=== PATIENT | male | born 1970 | race Caucasian/White ===

== ENCOUNTER 2017-01-08 16:51 | Emergency (ER) | payer MEDICAID ==
[~2017-01-08] VITALS: Ht 182.9 cm; Wt 79.4 kg
[2017-01-08 19:35] VITALS: BP 133/99
== END 2017-01-08 19:35 | disposition home or self-care (01) ==
LOC: ED 16:51
DX: R56.9 Unspecified convulsions (principal); I10 Essential (primary) hypertension; G81.94 Hemiplegia, unspecified affecting left nondominant side; F17.210 Nicotine dependence, cigarettes, uncomplicated; Z71.6 Tobacco abuse counseling
CPT/HCPCS: 82962; 99406

== ENCOUNTER 2017-01-26 10:50 | Emergency (ER) | payer MEDICAID ==
[~2017-01-26] VITALS: Ht 177.8 cm; Wt 81.6 kg
[2017-01-26 11:23] LABS: CHLORIDE SERUM 103 mmol/L (98-107); GFR1 > 60 mL/min; GLUCOSE SERUM 87 mg/dL (74-106); POTASSIUM SERUM 4.1 mmol/L (3.5-5.1); SODIUM SERUM 141 mmol/L (136-145)
[2017-01-26 11:28] LABS: ALBUMIN 3.6 g/dL (3.4-5.0); ALKALINE PHOSPHATASE 60 U/L (46-116); ALT/SGPT 23 U/L (16-63); AST/SGOT 14 U/L (15-37); BILIRUBIN TOTAL 0.4 mg/dL (0.20-1.00); TOTAL PROTEIN, SERUM 6.7 g/dL (6.4-8.2)
[2017-01-26 12:03] VITALS: BP 110/80
== END 2017-01-26 12:53 | disposition home or self-care (01) ==
LOC: ED 10:50
PROVIDERS: Emergency Medicine
DX: R56.9 Unspecified convulsions (principal); R51 Headache; Z98.890 Other specified postprocedural states

== ENCOUNTER 2017-02-23 15:42 | Emergency (ER) | payer MEDICAID ==
[2017-02-23 17:20] LABS: CALCIUM 8.9 mg/dL (8.5-10.1); CARBON DIOXIDE 27.7 mmol/L (21-32); CHLORIDE SERUM 103 mmol/L (98-107); GFR1 > 60 mL/min; GLUCOSE SERUM 86 mg/dL (74-106); POTASSIUM SERUM 3.8 mmol/L (3.5-5.1); SODIUM SERUM 139 mmol/L (136-145)
[2017-02-23 17:24] LABS: ALBUMIN 3.7 g/dL (3.4-5.0); ALKALINE PHOSPHATASE 58 U/L (46-116); ALT/SGPT 32 U/L (16-63); AST/SGOT 19 U/L (15-37); BASOPHIL % 0.4 % (0-2); BILIRUBIN TOTAL 0.4 mg/dL (0.20-1.00); MAGNESIUM 1.9 mg/dL (1.8-2.4); PLATELET COUNT 219 x10^3mcL (130-400); RED CELL DISTRIBUTION WIDTH 13.4 % (11.5-14.5); TOTAL PROTEIN, SERUM 6.9 g/dL (6.4-8.2)
[2017-02-23 19:31] VITALS: BP 131/96
== END 2017-02-23 19:31 | disposition home or self-care (01) ==
LOC: ED 15:42
PROVIDERS: Emergency Medicine
DX: R56.9 Unspecified convulsions (principal)
CPT/HCPCS: J2060

== ENCOUNTER 2017-03-06 16:58 | Emergency (ER) | payer MEDICAID ==
[~2017-03-06] VITALS: Ht 172.7 cm; Wt 80.3 kg
[2017-03-06 18:37] VITALS: BP 141/80
== END 2017-03-06 18:37 | disposition home or self-care (01) ==
LOC: ED 16:58
DX: Z76.0 Encounter for issue of repeat prescription (principal); G40.909 Epilepsy, unspecified, not intractable, without status epilepticus

== ENCOUNTER 2017-03-08 19:38 | Emergency (ER) | payer MEDICAID ==
[2017-03-08 22:00] VITALS: BP 116/87
== END 2017-03-08 22:11 | disposition home or self-care (01) ==
LOC: ED 19:38
DX: G40.409 Other generalized epilepsy and epileptic syndromes, not intractable, without status epilepticus (principal); Z87.820 Personal history of traumatic brain injury; Z79.899 Other long term (current) drug therapy

== ENCOUNTER 2017-03-19 10:34 | Emergency (ER) | payer MEDICAID ==
[~2017-03-19] VITALS: Ht 172.7 cm; Wt 79.4 kg
[2017-03-19] MEDS ORDERED: LORAZEPAM2 MG PO (10:54)
[2017-03-19] MEDS ORDERED: BENADRYL ALLERG25 M1 PO (10:55)
[2017-03-19] MEDS ORDERED: KEPPRA1000 M1 PO (10:55)
[2017-03-19 11:22] LABS: BASOPHIL % 0.6 % (0-2); PLATELET COUNT 222 x10^3mcL (130-400); RED CELL DISTRIBUTION WIDTH 13.3 % (11.5-14.5)
[2017-03-19 11:24] LABS: CALCIUM 8.7 mg/dL (8.5-10.1); CARBON DIOXIDE 26.2 mmol/L (21-32); CHLORIDE SERUM 105 mmol/L (98-107); CREATININE SERUM 0.7 mg/dL (0.7-1.3); GFR1 > 60 mL/min; GLUCOSE SERUM 97 mg/dL (74-106); SODIUM SERUM 141 mmol/L (136-145)
[2017-03-19 11:31] LABS: ALBUMIN 3.5 g/dL (3.4-5.0); ALKALINE PHOSPHATASE 54 U/L (46-116); ALT/SGPT 17 U/L (16-63); AST/SGOT 16 U/L (15-37); BILIRUBIN TOTAL 0.45 mg/dL (0.20-1.00); TOTAL PROTEIN, SERUM 6.6 g/dL (6.4-8.2)
[2017-03-19 13:05] VITALS: BP 114/75
== END 2017-03-19 13:05 | disposition home or self-care (01) ==
LOC: ED 10:34
PROVIDERS: Specialist
DX: G40.909 Epilepsy, unspecified, not intractable, without status epilepticus (principal); Z98.890 Other specified postprocedural states
CPT/HCPCS: J3490

== ENCOUNTER 2017-04-11 16:36 | Emergency (ER) | payer OTHER ==
[~2017-04-11] VITALS: Ht 177.8 cm; Wt 81.6 kg
[~2017-04-11 16:36] MED LIST: BENADRYL ALLERG25 M1 PO; KEPPRA1000 M1 PO; LORAZEPAM2 MG PO
[2017-04-11 22:29] VITALS: BP 117/80
== END 2017-04-11 22:29 | disposition home or self-care (01) ==
LOC: ED 16:36
DX: G40.409 Other generalized epilepsy and epileptic syndromes, not intractable, without status epilepticus (principal); Z79.899 Other long term (current) drug therapy
CPT/HCPCS: J2060

== ENCOUNTER 2017-05-21 05:37 | Emergency (ER) | payer OTHER ==
[2017-05-21 07:32] LABS: BASOPHIL % 0.3 % (0-2); PLATELET COUNT 202 x10^3mcL (130-400); RED CELL DISTRIBUTION WIDTH 12.8 % (11.5-14.5)
[2017-05-21 07:49] LABS: CALCIUM 8.6 mg/dL (8.5-10.1); CARBON DIOXIDE 29.7 mmol/L (21-32); CHLORIDE SERUM 107 mmol/L (98-107); CREATININE SERUM 0.9 mg/dL (0.7-1.3); GFR1 > 60 mL/min; GLUCOSE SERUM 95 mg/dL (74-106); SODIUM SERUM 140 mmol/L (136-145)
[2017-05-21 07:56] LABS: ALKALINE PHOSPHATASE 60 U/L (46-116); ALT/SGPT 26 U/L (16-63); AST/SGOT 16 U/L (15-37); BILIRUBIN TOTAL 0.3 mg/dL (0.20-1.00); TOTAL PROTEIN, SERUM 6.5 g/dL (6.4-8.2)
[2017-05-21 08:00] LABS: ALBUMIN 3.3 g/dL (3.4-5.0)
[2017-05-21 09:06] VITALS: BP 111/80
== END 2017-05-21 09:06 | disposition home or self-care (01) ==
LOC: ED 05:37
PROVIDERS: Emergency Medicine
DX: R56.9 Unspecified convulsions (principal)
CPT/HCPCS: J2060

== ENCOUNTER 2017-05-26 09:38 | Emergency (ER) | payer OTHER ==
[~2017-05-26] VITALS: Ht 172.7 cm; Wt 86.2 kg
[2017-05-26 13:01] VITALS: BP 122/85
== END 2017-05-26 13:01 | disposition home or self-care (01) ==
LOC: ED 09:38
DX: G40.409 Other generalized epilepsy and epileptic syndromes, not intractable, without status epilepticus (principal); Z76.0 Encounter for issue of repeat prescription

== ENCOUNTER 2017-06-19 19:53 | Emergency (ER) | payer OTHER ==
[2017-06-19 22:15] VITALS: BP 122/86
== END 2017-06-19 22:15 | disposition home or self-care (01) ==
LOC: ED 19:53
DX: R56.9 Unspecified convulsions (principal); F17.210 Nicotine dependence, cigarettes, uncomplicated; Z71.6 Tobacco abuse counseling
CPT/HCPCS: 99406

== ENCOUNTER 2017-07-22 16:49 | Emergency (ER) | payer OTHER ==
[~2017-07-22] VITALS: Ht 172.7 cm; Wt 81.6 kg
[2017-07-22 19:38] LABS: BASOPHIL % 0.4 % (0-2); PLATELET COUNT 257 x10^3mcL (130-400)
[2017-07-22 19:46] LABS: CALCIUM 8.4 mg/dL (8.5-10.1); CARBON DIOXIDE 26.8 mmol/L (21-32); CHLORIDE SERUM 106 mmol/L (98-107); CREATININE SERUM 0.9 mg/dL (0.7-1.3); GFR1 > 60 mL/min; GLUCOSE SERUM 107 mg/dL (74-106); SODIUM SERUM 140 mmol/L (136-145)
[2017-07-22 21:09] VITALS: BP 122/93
== END 2017-07-22 21:09 | disposition home or self-care (01) ==
LOC: ED 16:49
PROVIDERS: Student in an Organized Health Care Education/Training Program
DX: G40.109 Localization-related (focal) (partial) symptomatic epilepsy and epileptic syndromes with simple partial seizures, not intractable, without status epilepticus (principal)
CPT/HCPCS: J1953; J3490

== ENCOUNTER 2017-08-12 21:43 | Emergency (ER) | payer OTHER ==
[2017-08-13 00:19] VITALS: BP 125/83
== END 2017-08-12 23:30 | disposition home or self-care (01) ==
LOC: ED 21:43
DX: G40.909 Epilepsy, unspecified, not intractable, without status epilepticus (principal); F17.210 Nicotine dependence, cigarettes, uncomplicated
CPT/HCPCS: 82542

== ENCOUNTER 2017-08-27 15:07 | Emergency (ER) | payer OTHER ==
[~2017-08-27] VITALS: Ht 172.7 cm; Wt 81.6 kg
[2017-08-27 18:12] VITALS: BP 120/79
== END 2017-08-27 17:34 | disposition home or self-care (01) ==
LOC: ED 15:07
DX: R56.9 Unspecified convulsions (principal); R03.0 Elevated blood-pressure reading, without diagnosis of hypertension; F17.210 Nicotine dependence, cigarettes, uncomplicated; Z71.6 Tobacco abuse counseling
CPT/HCPCS: 99406; J2060

== ENCOUNTER 2017-09-01 06:31 | Emergency (ER) | payer OTHER ==
[2017-09-01 08:35] LABS: CALCIUM 8.7 mg/dL (8.5-10.1); CARBON DIOXIDE 28.7 mmol/L (21-32); CHLORIDE SERUM 106 mmol/L (98-107); GFR1 > 60 mL/min; GLUCOSE SERUM 94 mg/dL (74-106); POTASSIUM SERUM 3.8 mmol/L (3.5-5.1); SODIUM SERUM 140 mmol/L (136-145)
[2017-09-01 08:53] LABS: ALKALINE PHOSPHATASE 59 U/L (46-116); ALT/SGPT 25 U/L (16-63); AST/SGOT 19 U/L (15-37); BILIRUBIN TOTAL 0.38 mg/dL (0.20-1.00); TOTAL PROTEIN, SERUM 6.7 g/dL (6.4-8.2)
[2017-09-01 08:54] LABS: ALBUMIN 3.2 g/dL (3.4-5.0)
[2017-09-01 10:13] VITALS: BP 133/69
== END 2017-09-01 10:14 | disposition home or self-care (01) ==
LOC: ED 06:31
PROVIDERS: Emergency Medicine
DX: G40.509 Epileptic seizures related to external causes, not intractable, without status epilepticus (principal)
CPT/HCPCS: J1953; J2060; J3490

== ENCOUNTER 2017-09-05 09:47 | Inpatient (IN) | payer OTHER ==
[~2017-09-05] VITALS: Ht 172.7 cm; Wt 91.7 kg
[2017-09-05 10:13] LABS: BASOPHIL % 0.5 % (0-2); PLATELET COUNT 259 x10^3mcL (130-400)
[2017-09-05 10:20] LABS: CALCIUM 8.8 mg/dL (8.5-10.1); CARBON DIOXIDE 26.9 mmol/L (21-32); CHLORIDE SERUM 105 mmol/L (98-107); CREATININE SERUM 1.1 mg/dL (0.7-1.3); GFR1 > 60 mL/min; GLUCOSE SERUM 107 mg/dL (74-106); SODIUM SERUM 140 mmol/L (136-145)
[2017-09-05 10:25] LABS: ALBUMIN 3.4 g/dL (3.4-5.0); ALKALINE PHOSPHATASE 61 U/L (46-116); ALT/SGPT 25 U/L (16-63); AST/SGOT 13 U/L (15-37); BILIRUBIN TOTAL 0.43 mg/dL (0.20-1.00); TOTAL PROTEIN, SERUM 7.1 g/dL (6.4-8.2)
[2017-09-05 11:27] LABS: MAGNESIUM 1.7 mg/dL (1.8-2.4); PHOSPHOROUS 3.3 mg/dL (2.5-4.9)
[2017-09-05 11:40] LABS: T3 TOTAL 1.07 ng/mL
[2017-09-05 11:48] VITALS: BP 100/73
[2017-09-05 12:00] LABS: FREE T4 1.1 ng/dL (0.76-1.46); FREE THYROXINE INDEX 3.2 ug/dL (1.4-4.5)
[2017-09-05 12:11] LABS: microscopic required? NO
[2017-09-05 12:47] LABS: UA SPECIFIC GRAVITY 1.015 (1.005-1.035); urine erythrocyte NEGATIVE (NEGATIVE)
[2017-09-05 12:56] LABS: AMPHETAMINE QUAL UR NONE DETECTED (NEG <=1000)
[2017-09-05 13:15] VITALS: BP 124/85
[2017-09-05 17:15] VITALS: BP 114/84
[2017-09-05 21:22] VITALS: BP 108/77
[2017-09-06 06:03] VITALS: BP 101/70
[2017-09-06 06:14] LABS: BASOPHIL % 0.5 % (0-2); PLATELET COUNT 227 x10^3mcL (130-400)
[2017-09-06 06:17] LABS: CALCIUM 8.1 mg/dL (8.5-10.1); CHLORIDE SERUM 108 mmol/L (98-107); CREATININE SERUM 0.9 mg/dL (0.7-1.3); GFR1 > 60 mL/min; GLUCOSE SERUM 92 mg/dL (74-106); MAGNESIUM 2.2 mg/dL (1.8-2.4); POTASSIUM SERUM 4.1 mmol/L (3.5-5.1); SODIUM SERUM 143 mmol/L (136-145)
[2017-09-06 09:38] VITALS: BP 108/71
[2017-09-06 13:39] VITALS: BP 139/87
[2017-09-06] MEDS ORDERED: LORAZEPAM2 MG PO (14:14)
[2017-09-06 14:27] VITALS: BP 139/87
[2017-09-06 21:08] VITALS: BP 125/89
[2017-09-07 06:07] VITALS: BP 135/83
[2017-09-07 07:06] LABS: CALCIUM 8.5 mg/dL (8.5-10.1); CHLORIDE SERUM 107 mmol/L (98-107); CREATININE SERUM 0.9 mg/dL (0.7-1.3); GFR1 > 60 mL/min; GLUCOSE SERUM 86 mg/dL (74-106); SODIUM SERUM 140 mmol/L (136-145)
[2017-09-07 09:19] VITALS: BP 115/82
[2017-09-07 11:28] VITALS: BP 115/82
== END 2017-09-07 14:01 | disposition home or self-care (01) | DRG 53 ==
LOC: ED 09:47 → DU 10:37
PROVIDERS: Emergency Medicine; Family Medicine; ADMIT Family Medicine
DX: G40.909 Epilepsy, unspecified, not intractable, without status epilepticus (principal); E83.42 Hypomagnesemia
CPT/HCPCS: 84439; 90658; G0480; J3475; J7030; Q0163

== ENCOUNTER 2017-09-19 18:37 | Emergency (ER) | payer OTHER ==
[~2017-09-19] VITALS: Ht 172.7 cm; Wt 92.1 kg
[2017-09-19 20:25] LABS: BASOPHIL % 1.7 % (0-2); PLATELET COUNT 259 x10^3mcL (130-400); RED CELL DISTRIBUTION WIDTH 13.2 % (11.5-14.5)
[2017-09-19 20:43] LABS: CALCIUM 8.4 mg/dL (8.5-10.1); CARBON DIOXIDE 29.1 mmol/L (21-32); CHLORIDE SERUM 104 mmol/L (98-107); GFR1 > 60 mL/min; GLUCOSE SERUM 102 mg/dL (74-106); SODIUM SERUM 142 mmol/L (136-145)
[2017-09-19 20:47] LABS: ALBUMIN 3.4 g/dL (3.4-5.0); ALKALINE PHOSPHATASE 63 U/L (46-116); BILIRUBIN TOTAL 0.5 mg/dL (0.20-1.00)
[2017-09-19 20:48] LABS: AMPHETAMINE QUAL UR NONE DETECTED (NEG <=1000)
[2017-09-19 21:21] LABS: AST/SGOT 31 U/L (15-37)
[2017-09-19 21:23] LABS: TOTAL PROTEIN, SERUM 6.4 g/dL (6.4-8.2)
[2017-09-19 21:35] VITALS: BP 131/91
[2017-09-19 21:38] LABS: ALT/SGPT 26 U/L (16-63)
== END 2017-09-19 21:35 | disposition home or self-care (01) ==
LOC: ED 18:37
PROVIDERS: Emergency Medicine
DX: G40.909 Epilepsy, unspecified, not intractable, without status epilepticus (principal); Z87.820 Personal history of traumatic brain injury
CPT/HCPCS: 36415

== ENCOUNTER 2017-09-21 15:33 | Emergency (ER) | payer OTHER ==
[~2017-09-21] VITALS: Ht 172.7 cm; Wt 81.6 kg
[2017-09-21 18:40] VITALS: BP 108/89
== END 2017-09-21 18:38 | disposition home or self-care (01) ==
LOC: ED 15:33
DX: R56.9 Unspecified convulsions (principal)
CPT/HCPCS: J2060

== ENCOUNTER 2017-09-30 19:21 | Emergency (ER) | payer OTHER ==
[~2017-09-30] VITALS: Ht 172.7 cm; Wt 95.7 kg
[2017-09-30 19:27] VITALS: Ht 172.7 cm; Wt 95.7 kg
[2017-09-30 20:52] LABS: CALCIUM 9.2 mg/dL (8.5-10.1); CHLORIDE SERUM 104 mmol/L (98-107); CREATININE SERUM 0.9 mg/dL (0.7-1.3); GFR1 > 60 mL/min; GLUCOSE SERUM 99 mg/dL (74-106); POTASSIUM SERUM 3.7 mmol/L (3.5-5.1); SODIUM SERUM 135 mmol/L (136-145)
[2017-09-30 20:57] LABS: ALBUMIN 3.5 g/dL (3.4-5.0); ALKALINE PHOSPHATASE 54 U/L (46-116); ALT/SGPT 24 U/L (16-63); AST/SGOT 18 U/L (15-37); BILIRUBIN TOTAL 0.32 mg/dL (0.20-1.00); MAGNESIUM 1.8 mg/dL (1.8-2.4)
[2017-09-30 20:59] LABS: BASOPHIL % 1.5 % (0-2); PLATELET COUNT 230 x10^3mcL (130-400)
[2017-09-30 23:12] VITALS: BP 114/72
== END 2017-09-30 23:29 | disposition home or self-care (01) ==
LOC: ED 19:21
PROVIDERS: Emergency Medicine
DX: G40.909 Epilepsy, unspecified, not intractable, without status epilepticus (principal); R41.82 Altered mental status, unspecified
CPT/HCPCS: 83880; J1953; J2250; J2405; J3490

== ENCOUNTER 2017-10-04 21:06 | Emergency (ER) | payer OTHER ==
[2017-10-04 22:37] LABS: microscopic required? NO
[2017-10-04 22:47] LABS: BASOPHIL % 0.5 % (0-2); PLATELET COUNT 238 x10^3mcL (130-400); RED CELL DISTRIBUTION WIDTH 13.2 % (11.5-14.5)
[2017-10-04 22:59] LABS: UA SPECIFIC GRAVITY >=1.030 (1.005-1.035); urine erythrocyte NEGATIVE (NEGATIVE)
[2017-10-04 23:00] LABS: CALCIUM 8.8 mg/dL (8.5-10.1); CARBON DIOXIDE 24.9 mmol/L (21-32); CHLORIDE SERUM 106 mmol/L (98-107); CREATININE SERUM 1.1 mg/dL (0.7-1.3); GFR1 > 60 mL/min; GLUCOSE SERUM 102 mg/dL (74-106); POTASSIUM SERUM 3.9 mmol/L (3.5-5.1); SODIUM SERUM 141 mmol/L (136-145)
[2017-10-04 23:05] LABS: ALBUMIN 3.3 g/dL (3.4-5.0); ALKALINE PHOSPHATASE 53 U/L (46-116); ALT/SGPT 21 U/L (16-63); AST/SGOT 16 U/L (15-37); BILIRUBIN TOTAL 0.38 mg/dL (0.20-1.00); TOTAL PROTEIN, SERUM 6.7 g/dL (6.4-8.2)
[2017-10-04 23:15] LABS: AMPHETAMINE QUAL UR NONE DETECTED (NEG <=1000)
[2017-10-05 00:43] VITALS: BP 110/70
[2017-10-06] MEDS ORDERED: DEPAKOTE500 MG (12:36)
== END 2017-10-05 00:43 | disposition home or self-care (01) ==
LOC: ED 21:06
PROVIDERS: Emergency Medicine
DX: F41.9 Anxiety disorder, unspecified (principal); R42 Dizziness and giddiness
CPT/HCPCS: 36415

== ENCOUNTER 2017-10-06 09:25 | Observation (INO) | payer OTHER ==
[~2017-10-06] VITALS: Ht 172.7 cm; Wt 89.5 kg
[2017-10-06 09:32] VITALS: Ht 172.7 cm; Wt 89.5 kg
[2017-10-06 11:26] LABS: PLATELET COUNT 212 x10^3mcL (130-400); RED CELL DISTRIBUTION WIDTH 13.7 % (11.5-14.5)
[2017-10-06 11:27] LABS: BASOPHIL % 0 % (0-2)
[2017-10-06 11:44] LABS: CALCIUM 8.6 mg/dL (8.5-10.1); CARBON DIOXIDE 27.4 mmol/L (21-32); CHLORIDE SERUM 105 mmol/L (98-107); CREATININE SERUM 1.1 mg/dL (0.7-1.3); GFR1 > 60 mL/min; GLUCOSE SERUM 103 mg/dL (74-106); POTASSIUM SERUM 4.5 mmol/L (3.5-5.1); SODIUM SERUM 139 mmol/L (136-145)
[2017-10-06 11:49] LABS: ALBUMIN 3.5 g/dL (3.4-5.0); ALKALINE PHOSPHATASE 57 U/L (46-116); ALT/SGPT 23 U/L (16-63); AST/SGOT 20 U/L (15-37); BILIRUBIN TOTAL 0.7 mg/dL (0.20-1.00); TOTAL PROTEIN, SERUM 7.3 g/dL (6.4-8.2)
[2017-10-06] MEDS ORDERED: DEPAKOTE500 MG (12:36)
[2017-10-06 14:06] VITALS: BP 136/95
[2017-10-06 14:46] LABS: PHOSPHOROUS 2.8 mg/dL (2.5-4.9)
[2017-10-06 14:48] LABS: CHOLESTEROL/HDL RATIO 6.1
[2017-10-06 14:53] LABS: FREE T4 1.15 ng/dL (0.76-1.46); FREE THYROXINE INDEX 3.6 ug/dL (1.4-4.5); T4(THYROXINE) 10.1 ug/dL (4.7-13.3)
[2017-10-06 16:06] LABS: microscopic required? NO
[2017-10-06 17:02] LABS: UA SPECIFIC GRAVITY 1.025 (1.005-1.035); urine erythrocyte NEGATIVE (NEGATIVE)
[2017-10-06 17:30] LABS: AMPHETAMINE QUAL UR NONE DETECTED (NEG <=1000)
[2017-10-06 18:10] VITALS: BP 103/76
[2017-10-06 21:32] VITALS: BP 117/84
[2017-10-07 03:25] LABS: T3 TOTAL 0.76 ng/mL
[2017-10-07 05:01] VITALS: BP 103/71
[2017-10-07 06:45] LABS: BASOPHIL % 0.5 % (0-2); PLATELET COUNT 183 x10^3mcL (130-400)
[2017-10-07 07:04] LABS: CALCIUM 7.4 mg/dL (8.5-10.1); CARBON DIOXIDE 26.5 mmol/L (21-32); CHLORIDE SERUM 108 mmol/L (98-107); GFR1 > 60 mL/min; GLUCOSE SERUM 87 mg/dL (74-106); MAGNESIUM 1.8 mg/dL (1.8-2.4); PHOSPHOROUS 2.3 mg/dL (2.5-4.9); POTASSIUM SERUM 3.8 mmol/L (3.5-5.1); SODIUM SERUM 142 mmol/L (136-145)
[2017-10-07 10:30] VITALS: BP 159/75
[2017-10-07 13:13] VITALS: BP 108/75
[2017-10-07 18:09] VITALS: BP 114/67
[2017-10-07 21:12] VITALS: BP 112/81
[2017-10-08 06:13] VITALS: BP 119/77
[2017-10-08 08:26] LABS: CALCIUM 8.2 mg/dL (8.5-10.1); CHLORIDE SERUM 107 mmol/L (98-107); CREATININE SERUM 0.8 mg/dL (0.7-1.3); GFR1 > 60 mL/min; GLUCOSE SERUM 72 mg/dL (74-106); PHOSPHOROUS 1.9 mg/dL (2.5-4.9); POTASSIUM SERUM 3.7 mmol/L (3.5-5.1); SODIUM SERUM 141 mmol/L (136-145)
[2017-10-08 08:28] LABS: BASOPHIL % 0.7 % (0-2); PLATELET COUNT 185 x10^3mcL (130-400); RED CELL DISTRIBUTION WIDTH 13.1 % (11.5-14.5)
[2017-10-08 10:14] VITALS: BP 124/77
[2017-10-08] MEDS ORDERED: KEPPRA1000 M1 PO (10:54)
[2017-10-08 11:03] VITALS: BP 124/77
[2017-10-08 13:40] VITALS: BP 126/88
== END 2017-10-08 15:40 | disposition home or self-care (01) | DRG 53 ==
LOC: ED 09:25 → DU 12:31
PROVIDERS: Emergency Medicine; Family Medicine Sports Medicine
DX: G40.909 Epilepsy, unspecified, not intractable, without status epilepticus (principal); N17.0 Acute kidney failure with tubular necrosis; R65.10 Systemic inflammatory response syndrome (SIRS) of non-infectious origin without acute organ dysfunction; E83.39 Other disorders of phosphorus metabolism; K76.0 Fatty (change of) liver, not elsewhere classified; T14.90XS Injury, unspecified, sequela; K21.9 Gastro-esophageal reflux disease without esophagitis; E78.5 Hyperlipidemia, unspecified; F17.210 Nicotine dependence, cigarettes, uncomplicated; Z68.29 Body mass index [BMI] 29.0-29.9, adult; Z87.820 Personal history of traumatic brain injury; V29.9XXS Motorcycle rider (driver) (passenger) injured in unspecified traffic accident, sequela
CPT/HCPCS: 83880; 84439; G0378; J2250; J7030; Q0092

== ENCOUNTER 2017-10-10 11:15 | Emergency (ER) | payer OTHER ==
[~2017-10-10] VITALS: Ht 172.7 cm; Wt 86.2 kg
[~2017-10-10 11:15] MED LIST changes: +DEPAKOTE500 MG
[2017-10-10 11:20] VITALS: Ht 172.7 cm; Wt 86.2 kg
[2017-10-10 12:45] VITALS: BP 121/62
== END 2017-10-10 12:46 | disposition home or self-care (01) ==
LOC: ED 11:15
DX: F41.9 Anxiety disorder, unspecified (principal)

== ENCOUNTER 2017-10-22 16:17 | Emergency (ER) | payer OTHER ==
[~2017-10-22] VITALS: Ht 172.7 cm; Wt 86.2 kg
[2017-10-22 16:23] VITALS: Ht 172.7 cm; Wt 86.2 kg
[2017-10-22 17:34] LABS: CALCIUM 8.7 mg/dL (8.5-10.1); CARBON DIOXIDE 26.5 mmol/L (21-32); CHLORIDE SERUM 105 mmol/L (98-107); CREATININE SERUM 0.9 mg/dL (0.7-1.3); GFR1 > 60 mL/min; GLUCOSE SERUM 90 mg/dL (74-106); POTASSIUM SERUM 3.8 mmol/L (3.5-5.1); SODIUM SERUM 141 mmol/L (136-145)
[2017-10-22 17:38] VITALS: BP 110/90
== END 2017-10-22 18:50 | disposition home or self-care (01) ==
LOC: ED 16:17
PROVIDERS: Emergency Medicine
DX: G40.909 Epilepsy, unspecified, not intractable, without status epilepticus (principal)

== ENCOUNTER 2017-11-05 06:28 | Emergency (ER) | payer OTHER ==
[~2017-11-05] VITALS: Ht 172.7 cm; Wt 86.2 kg
[2017-11-05 06:33] VITALS: Ht 172.7 cm; Wt 86.2 kg
[2017-11-05 07:53] VITALS: BP 123/70
== END 2017-11-05 07:53 | disposition home or self-care (01) ==
LOC: ED 06:28
DX: R56.9 Unspecified convulsions (principal); F17.210 Nicotine dependence, cigarettes, uncomplicated; M79.602 Pain in left arm

== ENCOUNTER 2018-01-07 10:06 | Emergency (ER) | payer OTHER ==
[~2018-01-07] VITALS: Ht 172.7 cm; Wt 93.0 kg
[2018-01-07 10:14] VITALS: Ht 172.7 cm; Wt 93.0 kg
[2018-01-07 11:12] VITALS: BP 127/77
== END 2018-01-07 11:19 | disposition home or self-care (01) ==
LOC: ED 10:06
DX: G40.909 Epilepsy, unspecified, not intractable, without status epilepticus (principal)

== ENCOUNTER 2018-01-09 22:00 | Emergency (ER) | payer OTHER ==
[2018-01-09 23:58] VITALS: BP 119/96
== END 2018-01-09 23:58 | disposition home or self-care (01) ==
LOC: ED 22:00
DX: R56.9 Unspecified convulsions (principal); R51 Headache; Z87.820 Personal history of traumatic brain injury; Z98.890 Other specified postprocedural states
CPT/HCPCS: J1885

== ENCOUNTER 2018-02-11 09:20 | Emergency (ER) | payer OTHER ==
[~2018-02-11] VITALS: Ht 172.7 cm; Wt 88.5 kg
[2018-02-11 09:24] VITALS: Ht 172.7 cm; Wt 88.5 kg
[2018-02-11 10:22] LABS: BASOPHIL % 0.6 % (0-2); PLATELET COUNT 230 x10^3mcL (130-400); RED CELL DISTRIBUTION WIDTH 13.8 % (11.5-14.5)
[2018-02-11 10:26] LABS: ALBUMIN 3.5 g/dL (3.4-5.0); ALKALINE PHOSPHATASE 63 U/L (46-116); ALT/SGPT 36 U/L (16-63); AST/SGOT 21 U/L (15-37); BILIRUBIN TOTAL 0.3 mg/dL (0.20-1.00); CALCIUM 8.7 mg/dL (8.5-10.1); CARBON DIOXIDE 30.6 mmol/L (21-32); CHLORIDE SERUM 105 mmol/L (98-107); CREATININE SERUM 1.1 mg/dL (0.7-1.3); GFR1 > 60 mL/min; GLUCOSE SERUM 90 mg/dL (74-106); SODIUM SERUM 142 mmol/L (136-145); TOTAL PROTEIN, SERUM 6.7 g/dL (6.4-8.2)
[2018-02-11 10:28] LABS: CHOLESTEROL 208 mg/dL (<200); HDL CHOLESTEROL 26 mg/dL (40-60); TRIGLYCERIDES 421 mg/dL (<150)
[2018-02-11 10:30] LABS: T3 TOTAL 0.89 ng/mL
[2018-02-11 10:35] LABS: FREE T4 0.83 ng/dL (0.76-1.46); FREE THYROXINE INDEX 2.2 ug/dL (1.4-4.5); T4(THYROXINE) 6.6 ug/dL (4.7-13.3)
[2018-02-11 11:42] VITALS: BP 124/68
== END 2018-02-11 11:42 | disposition home or self-care (01) ==
LOC: ED 09:20
PROVIDERS: Specialist
DX: R56.9 Unspecified convulsions (principal)
CPT/HCPCS: 36415; 83880; 84439; J7030

== ENCOUNTER 2018-03-12 20:40 | Emergency (ER) | payer OTHER ==
[2018-03-12 22:17] LABS: CALCIUM 8.7 mg/dL (8.5-10.1); CARBON DIOXIDE 29.8 mmol/L (21-32); CHLORIDE SERUM 106 mmol/L (98-107); CREATININE SERUM 0.9 mg/dL (0.7-1.3); GFR1 > 60 mL/min; GLUCOSE SERUM 91 mg/dL (74-106); POTASSIUM SERUM 4.1 mmol/L (3.5-5.1); SODIUM SERUM 142 mmol/L (136-145)
[2018-03-12 22:24] LABS: AMPHETAMINE QUAL UR NONE DETECTED (NEG <=1000)
[2018-03-13 00:54] VITALS: BP 126/88
== END 2018-03-13 00:54 | disposition home or self-care (01) ==
LOC: ED 20:40
PROVIDERS: Emergency Medicine
DX: G40.909 Epilepsy, unspecified, not intractable, without status epilepticus (principal)
CPT/HCPCS: 36415

== ENCOUNTER 2018-04-14 05:48 | Emergency (ER) | payer OTHER ==
[~2018-04-14] VITALS: Ht 172.7 cm; Wt 93.0 kg
[2018-04-14 06:03] VITALS: Ht 172.7 cm; Wt 93.0 kg
[2018-04-14 07:20] VITALS: BP 112/79
[2018-04-14 07:42] LABS: CALCIUM 8.8 mg/dL (8.5-10.1); CARBON DIOXIDE 24.6 mmol/L (21-32); CHLORIDE SERUM 105 mmol/L (98-107); GFR1 > 60 mL/min; GLUCOSE SERUM 105 mg/dL (74-106); POTASSIUM SERUM 3.8 mmol/L (3.5-5.1); SODIUM SERUM 139 mmol/L (136-145)
== END 2018-04-14 08:50 | disposition home or self-care (01) ==
LOC: ED 05:48
PROVIDERS: Specialist
DX: R56.9 Unspecified convulsions (principal)
CPT/HCPCS: 36415

== ENCOUNTER 2018-05-09 11:48 | Emergency (ER) | payer OTHER ==
[~2018-05-09] VITALS: Ht 172.7 cm; Wt 93.0 kg
[2018-05-09 11:53] VITALS: Ht 172.7 cm; Wt 93.0 kg
[2018-05-09 13:15] LABS: CALCIUM 9.1 mg/dL (8.5-10.1); CARBON DIOXIDE 26.7 mmol/L (21-32); CHLORIDE SERUM 107 mmol/L (98-107); GFR1 > 60 mL/min; GLUCOSE SERUM 95 mg/dL (74-106); POTASSIUM SERUM 4.1 mmol/L (3.5-5.1); SODIUM SERUM 139 mmol/L (136-145)
[2018-05-09 13:19] LABS: ALBUMIN 3.7 g/dL (3.4-5.0); ALKALINE PHOSPHATASE 57 U/L (46-116); ALT/SGPT 22 U/L (16-63); AST/SGOT 17 U/L (15-37); BILIRUBIN TOTAL 0.41 mg/dL (0.20-1.00)
[2018-05-09 14:50] VITALS: BP 137/95
== END 2018-05-09 14:50 | disposition home or self-care (01) ==
LOC: ED 11:48
PROVIDERS: Specialist
DX: G40.909 Epilepsy, unspecified, not intractable, without status epilepticus (principal)
CPT/HCPCS: J1885; J7030

== ENCOUNTER 2018-05-09 15:20 | Emergency (ER) | payer OTHER ==
[~2018-05-09] VITALS: Ht 172.7 cm; Wt 88.5 kg
[2018-05-09 16:16] VITALS: Ht 172.7 cm; Wt 88.5 kg
[2018-05-09 18:25] VITALS: BP 131/97
== END 2018-05-09 18:25 | disposition home or self-care (01) ==
LOC: ED 15:20
DX: G40.909 Epilepsy, unspecified, not intractable, without status epilepticus (principal)

== ENCOUNTER 2018-06-20 13:40 | Emergency (ER) | payer OTHER ==
[~2018-06-20] VITALS: Ht 172.7 cm; Wt 88.5 kg
[2018-06-20 13:43] VITALS: Ht 172.7 cm; Wt 88.5 kg
[2018-06-20 17:25] VITALS: BP 133/88
== END 2018-06-20 17:25 | disposition home or self-care (01) ==
LOC: ED 13:40
DX: M54.5 Low back pain (principal)
CPT/HCPCS: J1885